=== PATIENT | female | born 1990 | race Caucasian/White ===

== ENCOUNTER 2019-12-07 14:36 | Outpatient (CLI) | payer OTHER ==
--- NOTE | 2019-12-07 16:10 | Non Stress Test Report ---
Non Stress Test Datetime Report Generated by CPN: 12/07/2019 16:09 DEMOGRAPHIC EGA NST: 40.1 INDICATION Indication for Study (NST) Other: POST DATES VITAL SIGNS Temperature - NST: 98.7 Pulse - NST: 86 RESP - NST: 18 NBPSYS NST: 103 NBPDIA NST: 68 MONITORING Monitor Explained: Monitor Explained; Test Explained; Patient Verbalized Understanding Time on Monitor: 12/07/2019 14:53 Time off Monitor: 12/07/2019 15:48 NST Duration: 55 NST INTERVENTIONS NST Interventions: PO Hydration; Reposition Patient Physician Notified NST: C MATHIAS, CNM BABY A: [id number] BABY A Movement : Present Contraction Frequency : RARE FHR Baseline : 135 Accelerations : 15X15 Decelerations : None Variability : Moderate 6-25bpm NST Review: Meets Criteria for Reactive NST NST Review and Verified By : KARISSA Chavis Results: Reactive NST REPORT Report Trigger: Send Report
== END 2019-12-07 15:51 | disposition home or self-care (01) ==
LOC: LC 14:36
PROVIDERS: ATTEND Obstetrics & Gynecology
PROC: 4A1HXCZ Monitoring of Products of Conception, Cardiac Rate, External Approach (ICD-10-PCS; principal; 2019-12-07)
DX: O48.0 Post-term pregnancy (principal); Z3A.40 40 weeks gestation of pregnancy
CPT/HCPCS: 59025

== ENCOUNTER 2019-12-11 15:55 | Outpatient (CLI) | payer OTHER ==
[2019-12-11 16:33] LABS: APPEARANCE,URINE SLIGHTLY-CLOUDY; BILIRUBIN,URINE NEGATIVE (NEGATIVE); COLOR,URINE YELLOW; GLUCOSE, URINE NEGATIVE (NEGATIVE); KETONES,URINE NEGATIVE (NEGATIVE); LEUKOCYTE ESTERASE,URINE NEGATIVE (NEGATIVE); NITRITE,URINE NEGATIVE (NEGATIVE); PROTEIN,URINE NEGATIVE (NEGATIVE); URINE SPECIFIC GRAVITY 1.017; UROBILINOGEN,URINE NEGATIVE mg/dL (<2.0)
[2019-12-11 16:58] LABS: BACTERIA (WET MOUNT) 4+ BACTERIA SEEN; EPITHELIALS (WET MOUNT) 3+ EPITHELIALS SEEN; RBCS (WET MOUNT) NO RBCS SEEN; T.VAGINALIS (WET MOUNT) NO TRICHOMONAS SEEN; WBCS (WET MOUNT) FEW WBCS SEEN; YEAST (WET MOUNT) NO YEAST SEEN
[2019-12-11 17:02] LABS: URINE AMPHETAMINES SCREEN NEGATIVE; URINE BARBITURATES SCREEN NEGATIVE; URINE BENZODIAZEPINES SCREEN NEGATIVE; URINE COCAINE SCREEN NEGATIVE; URINE MARIJUANA (THC) SCREEN NEGATIVE; URINE METHADONE SCREEN NEGATIVE; URINE PHENCYCLIDINE SCREEN NEGATIVE
[2019-12-11] MEDS ORDERED: HYDROXYZINE PAMOATE 50 MG CAPSULE PO ONE (17:03)
[2019-12-11] MEDS ORDERED: HYDROXYZINE PAMOATE 50 MG CAPSULE ONE (17:05)
== END 2019-12-11 18:05 | disposition home or self-care (01) ==
LOC: LC 15:55
PROVIDERS: ATTEND Obstetrics & Gynecology
PROC: 4A1HXCZ Monitoring of Products of Conception, Cardiac Rate, External Approach (ICD-10-PCS; principal; 2019-12-11)
DX: O48.0 Post-term pregnancy (principal); Z3A.40 40 weeks gestation of pregnancy
CPT/HCPCS: 59025; 80307; 81005; 84112; 87210

== ENCOUNTER 2019-12-12 10:35 | Inpatient (IN) | payer OTHER ==
--- NOTE | 2019-12-12 10:37 | Non Stress Test Report ---
Non Stress Test Datetime Report Generated by CPN: 12/12/2019 10:37 DEMOGRAPHIC EGA NST: 40.5 INDICATION Indication for Study (NST) Other: Labor Check IUP 40.5 MONITORING Monitor Explained: Monitor Explained; Test Explained; Patient Verbalized Understanding Time on Monitor: 12/11/2019 16:40 Time off Monitor: 12/11/2019 17:00 NST Duration: 20 NST INTERVENTIONS NST Interventions: PO Hydration Physician Notified NST: Dr. See BABY A: [id number] BABY A Movement : Present Contraction Frequency : Irritability FHR Baseline : 135 Accelerations : 15X15 Decelerations : None Variability : Moderate 6-25bpm NST Review: Meets Criteria for Reactive NST NST Review and Verified By : B Baidy RN NST Results: Reactive NST REPORT Report Trigger: Send Report
[2019-12-12 11:07] LABS: APPEARANCE,URINE SLIGHTLY-CLOUDY; BILIRUBIN,URINE NEGATIVE (NEGATIVE); COLOR,URINE YELLOW; GLUCOSE, URINE NEGATIVE (NEGATIVE); KETONES,URINE NEGATIVE (NEGATIVE); LEUKOCYTE ESTERASE,URINE TRACE (NEGATIVE); NITRITE,URINE NEGATIVE (NEGATIVE); PROTEIN,URINE NEGATIVE (NEGATIVE); URINE SPECIFIC GRAVITY 1.005; UROBILINOGEN,URINE NEGATIVE mg/dL (<2.0)
[2019-12-12 11:23] LABS: URINE AMPHETAMINES SCREEN NEGATIVE; URINE BARBITURATES SCREEN NEGATIVE; URINE BENZODIAZEPINES SCREEN NEGATIVE; URINE COCAINE SCREEN NEGATIVE; URINE MARIJUANA (THC) SCREEN NEGATIVE; URINE METHADONE SCREEN NEGATIVE; URINE PHENCYCLIDINE SCREEN NEGATIVE
[2019-12-12] MEDS ORDERED: OXYTOCIN/NORMAL SALINE 20 UNIT/1,000 ML RTUINJ ONE (11:44)
[2019-12-12] MEDS ORDERED: OXYTOCIN 10 UNIT/ML VIAL ONE (11:44)
[2019-12-12] MEDS ORDERED: MISOPROSTOL 0.2 MG TABLET ONE (11:44)
[2019-12-12] MEDS ORDERED: LIDOCAINE 1% INJ-PF (10 MG/ML) 30 ML SDV ONE (11:44)
--- NOTE | 2019-12-12 11:44 | Admission Physical ---
Datetime Report Generated by CPN: 12/12/2019 11:44 CURRENT ADMISSION Hx Assessment: The History has been Reviewed and is Current Chief Complaint: Uterine Contractions Indication for Induction: Not Applicable Admit Impression : Postterm, Intrauterine ; No Active Labor; Intact Membranes Admit Plan: Initiate Labor Protocol ALLERGIES Medication Allergies: Yes Medication Allergies: Penicillins (12/12/2019); morphine (12/12/2019) Latex: No Latex Allergies OBSTETRICAL HISTORY EDC: 12/06/2019 00:00 : 1 Para: 0 Term: 0 : 0 SAB: 0 IAB: 0 Livin Gestational Diabetes: No Rh Sensitization: No Incompetent Cervix: No MILES: No Infertility: No ART Treatment: No Uterine Anomaly: No IUGR: No Hx Previous C/S: No Macrosomia: No Hx Loss/Stillborn: No PIH: No Hx : No Placenta Previa/Abruption: No Depression/PP Depression: No PTL/PROM: No Post Hemorrhage: No Current Procedures: Ultrasound; NST Obstetrical History Comments: G1: current SEE RECORDS Alcohol: No Marijuana : No Cocaine: No Other Illicit Drugs: No Cigarettes: Former Smoker. [id number] MEDICAL HISTORY Diabetes: No Blood Transfusion: No Pulmonary Disease (Asthma, TB): No Breast Disease: No Hypertension: No Broke Beater Surgery: No Heart Disease: No Hosp/Surgery: Yes Autoimmune Disorder: No Anesthetic Complications: No Kidney Disease: No Abnormal Pap Smear: No Neuro/Epilepsy: No Psychiatric Disorders: No Other Medical Diseases: No Hepatitis/Liver Disease: No Significant Family History: No Varicosities/Phlebitis: No Trauma/Violence : No Thyroid Dysfunction: No Medical History Comments: tachycardia cleared by die reamer, tonsillectomy, appendectomy INFECTIOUS HISTORY Gonorrhea: No Genital Herpes: No Chlamydia: No Tuberculosis: No Syphilis: No Hepatitis: No HIV/AIDS Exposure: No Rash or Viral Illness: No HPV: No PHYSICAL EXAM General: Normal HEENT: Normal Neurologic: Normal Thyroid: Normal Heart: Normal Lungs: Normal Breast: Deferred Back: Normal Abdomen: Normal Genitourinary Exam: Normal Extremities: Normal DTRs: Normal Pelvic Type: Adequate Physical Exam Comments: G1, 40+6, GERD B Neg GBS Neg EFW 7 lbs FETUS A EGA: 40.6 Monitoring: External US Variability: Moderate 6-25bpm Accelerations: 15X15 Decelerations: Variable FHR Category: Category I Admit Comment: G1 admitted to LD in early labor, seen as a labor check last night and at office this AM. UC's worse now, making noise with uc's, on bouny ball and breathing with uc's + FM, variable decel x 1 with recovery, irreg uc's Plan: Admit, augmentation, POC discussed with pt and hsb, desires epidural when needed PLANS FOR LABOR AND DELIVERY Labor and Delivery: None Pain Management: Medications; Epidural Feeding Preference: Breast Benefit of Breast Feed Discussed: Yes Circumcision: N/A INFORMED CONSENT Assignment: Saroj Delgadillo MD Signature: with User ID: Bruce : with User ID: Bruce
[2019-12-12 13:07] LABS: ABSOLUTE EOSINOPHILS # (AUTO) 0.1 10^3/uL (0.0-0.6); ABSOLUTE LYMPHOCYTES (AUTO) 1.8 10^3/uL (0.5-4.7); ABSOLUTE MONOCYTES (AUTO) 0.9 10^3/uL (0.1-1.4); ABSOLUTE NEUT (AUTO) 10.5 10^3/uL (1.7-8.2); BASOPHILS % (AUTO) 0.2 % (0-2); EOSINOPHILS % (AUTO) 0.9 % (0-6); HEMATOCRIT 33.6 % (36.0-47.0); HEMOGLOBIN 11.8 g/dL (12.0-15.5); LYMPHOCYTES % (AUTO) 13.8 % (13-45); MEAN CORPUSCULAR HEMOGLOBIN 31.7 pg (27.0-33.4); MEAN CORPUSCULAR HGB CONC 35.1 g/dL (32.0-36.0); MEAN CORPUSCULAR VOLUME 90 fl (80-97); MONOCYTES % (AUTO) 6.6 % (3-13); PLATELET COUNT 217 10^3/uL (150-450); RED BLOOD COUNT 3.73 10^6/uL (3.72-5.28); RED CELL DISTRIBUTION WIDTH 13.9 % (11.5-14.0); SEGMENTED NEUTROPHILS % (AUTO) 78.5 % (42-78); TOTAL CELLS COUNTED % (AUTO) 100 %; WHITE BLOOD COUNT 13.3 10^3/uL (4.0-10.5)
[2019-12-12] MEDS ORDERED: EPHEDRINE SULFATE INJ 50 MG/1 ML AMPULE ONE (13:40)
[2019-12-12] MEDS ORDERED: FENTANYL/BUPIVACAINE/NS/PF 300 MCG/150 ML RTUINJ EPI ONE (13:41)
[2019-12-12] MEDS ORDERED: BUPIVACAINE HCL 0.25 % INJ/PF (2.5 MG/1 ML) 30 ML VIAL ONE (13:41)
[2019-12-12] MEDS ORDERED: RINGERS SOLUTION,LACTATED 1,000 ML IV PRN (18:07)
[2019-12-12] MEDS ORDERED: ACETAMINOPHEN WITH CODEINE #3 TABLET PO PRN ×2 (20:13)
[2019-12-12] MEDS ORDERED: GLYCERIN/WITCH HAZEL LEAF 1 EACH MED..WIPE TP PRN (20:13)
[2019-12-12] MEDS ORDERED: BENZOCAINE/MENTHOL AEROSOL SPRAY 56 ML TOP PRN (20:13)
[2019-12-12] MEDS ORDERED: MAGNESIUM HYDROXIDE SUSP 30 ML UDCUP PO PRN (20:13)
[2019-12-12] MEDS ORDERED: PSEUDOEPHEDRINE HCL 30 MG TABLET PO PRN (20:13)
[2019-12-12] MEDS ORDERED: PROMETHAZINE HCL 25 MG TABLET PO PRN (20:13)
[2019-12-12] MEDS ORDERED: ZOLPIDEM TARTRATE 5 MG TABLET PO PRN (20:13)
[2019-12-12] MEDS ORDERED: DIPH/PERTUSS(ACELL)/TETANUS VAC/PF 0.5 ML SYR (>=10YO) IM PRN (20:13)
[2019-12-12] MEDS ORDERED: OXYTOCIN/NORMAL SALINE 20 UNIT/1,000 ML RTUINJ IV PRN (20:13)
[2019-12-12] MEDS ORDERED: PROMETHAZINE HCL INJ 25 MG/1 ML VIAL IV PRN (20:13)
[2019-12-12] MEDS ORDERED: PROMETHAZINE HCL 25 MG SUPP.RECT PR PRN (20:13)
[2019-12-12] MEDS ORDERED: DIBUCAINE 1% OINTMENT 28 GM TP PRN (20:13)
[2019-12-12] MEDS ORDERED: MEASLES,MUMPS&RUBELLA VACC/PF 0.5 ML VIAL SUBCUT PRN (20:13)
[2019-12-12] MEDS ORDERED: ACETAMINOPHEN 650 MG SUPP.RECT PR PRN (20:13)
[2019-12-12] MEDS ORDERED: DIPHENHYDRAMINE HCL 25 MG CAPSULE PO PRN (20:13)
[2019-12-12] MEDS ORDERED: NA PHOS,M-B/NA PHOS,DI-BA (ADULT) 133 ML ENEMA PR PRN (20:13)
--- NOTE | 2019-12-12 21:51 | Delivery Summary ---
Del Sum A-C Datetime Report Generated by CPN: 12/12/2019 21:51 DELIVERY PERSONNEL DELIVERY PERSONNEL: [id number] Delivery Doctor:: Saroj Delgadillo MD Labor and Delivery Nurse:: Elvi Alicea RN Nursery Nurse:: Marylu Briscoe RN Dress Marker/FILM LIBRARIAN: Parkpolina Deleon, ST MATERNAL INFORMATION Delivery Anesthesia: Epidural Medications After Delivery: Pitocin Drip 20 Units/1000ml NSS Estimated Blood Loss (ml): 250 Delivery QBL: 150 Maternal Complications: None LABOR SUMMARY EDC: 12/06/2019 00:00 No. Babies in Womb: 1 Attempted: No Labor Anesthesia: Epidural LABOR INFORMATION Reason for Induction: Not Applicable Onset of Labor: 12/12/2019 06:00 Complete Dilatation: 12/12/2019 17:00 Oxytocin: N/A Group B Beta Strep: negative Antibiotics # of Doses: 0 Antibiotics Time of Last Dose: N/A Name of Antibiotic Given: N/A Steroids Given: None Reason Steroids Not Administered: Not Applicable MEMBRANES Membranes Rupture Method: Artificial Rupture of Membranes: 12/12/2019 13:17 Length of Rupture (hr): 6.68 Amniotic Fluid Color: Heavy Meconium Amniotic Fluid Amount: Scant Amniotic Fluid Odor: None STAGES OF LABOR Stage 1 hr: 11 Stage 1 min: 0 Stage 2 hr: 2 Stage 2 min: 58 Stage 3 hr: 0 Stage 3 min: 5 Total Time in Labor hr: 14 Total Time in Labor min: 3 VAGINAL DELIVERY Episiotomy: None Laceration #1: Vaginal Laceration Extension #1: N/A Laceration #2: None Laceration Extension #2: N/A Laceration #3: None Laceration Extension #3: N/A Laceration Repair: Yes Laceration Repair Note: left labial laceration repaired with 3 3-0 chromic (Annotations: Data stored by N on behalf of user) Sponge Count Correct: Yes Sharps Count Correct: Yes CSECTION DELIVERY Primary Indication: N/A Secondary Indication: N/A CSection Incidence: N/A Labor: N/A Elective: N/A BABY A INFORMATION Delivery Date/Time: 12/12/2019 19:58 Method of Delivery: Vaginal Nurse Controlled Delivery: No Born in Route : No : N/A Forceps: N/A Vacuum Extraction: N/A Shoulder Dystocia : No PRESENTATION/POSITION BABY A Presentation: Cephalic Cephalic Presentation: Vertex Vertex Position: Left Occipital Anterior Breech Presentation: N/A PLACENTA INFORMATION BABY A Placenta Delivery Time : 12/12/2019 20:03 Placenta Method of Delivery: Spontaneous Placenta Status: Delivered SCORES BABY A Heart Rate 1 min: >100 bpm Resp Effort 1 min: Slow, Irregular Reflex Irritability 1 min: Cough or Sneeze or Pulls Away Muscle Tone 1 min: Active Motion Color 1 min: Blue/Pale SCORE 1 MIN: 7 Heart Rate 5 min: >100 bpm Resp Effort 5 min: Good Cry Reflex Irritability 5 min: Cough or Sneeze or Pulls Away Muscle Tone 5 min: Active Motion Color 5 min: Body [place], Extremities Blue SCORE 5 MIN: 9 INFANT INFORMATION BABY A Gestational Age at Delivery: 40.6 Gestational Status: Full Term- 39- 40.6 Weeks Outcome : Liveborn Infant Condition : Stable Sex: Female IDENTIFICATION BABY A Verification Date/Time: 12/12/2019 20:11 ID Band Number: [id number] Mother's Name Verified: Yes Infant RN Verifying Infant: EImelda Alicea RN/ Werner Garcia RN WEIGHT/LENGTH BABY A Infant Birthweight (gm): 3210 Infant Weight (lb): 7 Infant Weight (oz): 1 Infant Length (in): 20.00 Length (cm): 50.80 CORD INFORMATION BABY A No. Cord Vessels: 3 Nuchal Cord : Around Neck x1, Loose Cord Blood Taken: Yes-For Eval (Mom's Blood Type - or O+) Suction: None ASSESSMENT BABY A Skin to Skin: Yes BABY B INFORMATION : N/A
[2019-12-12] MEDS: FAMOTIDINE 20 MG TABLET PO SCH (22:08)
[2019-12-13] MEDS: IBUPROFEN 800 MG TABLET PO SCH ×3 (02:07→17:36)
[2019-12-13 07:41] LABS: HEMATOCRIT 32.1 % (36.0-47.0); MEAN CORPUSCULAR HEMOGLOBIN 31.1 pg (27.0-33.4); MEAN CORPUSCULAR HGB CONC 34.1 g/dL (32.0-36.0); MEAN CORPUSCULAR VOLUME 91 fl (80-97); PLATELET COUNT 192 10^3/uL (150-450); RED BLOOD COUNT 3.52 10^6/uL (3.72-5.28); RED CELL DISTRIBUTION WIDTH 13.6 % (11.5-14.0); WHITE BLOOD COUNT 14.1 10^3/uL (4.0-10.5)
[2019-12-13] MEDS: SENNOSIDES/DOCUSATE 8.6-50 MG 1 EACH TABLET PO SCH (09:32)
[2019-12-13] MEDS: FERROUS SULFATE 325 MG TABLET PO SCH ×2 (09:32→17:36)
[2019-12-13] MEDS: PRENATAL VITAMIN W DHA CAPSULE PO SCH (09:32)
[2019-12-13] MEDS: FAMOTIDINE 20 MG TABLET PO SCH ×2 (09:34→22:30)
[2019-12-13] MEDS: DOCUSATE SODIUM 100 MG CAPSULE PO SCH ×2 (09:34→17:37)
--- NOTE | 2019-12-13 11:26 | PDOC PROGRESS REPORT ---
Subjective-OB Progress Note for:: 12/13/19 Subjective: Pt doing well, no concerns. She reports light bleeding, reg diet and voiding without difficulty. Physical Exam (OB) Vital Signs: Temp Pulse Resp BP Pulse Ox 97.7 F 81 18 113/65 99 12/13/19 08:00 12/13/19 08:00 12/13/19 08:00 12/13/19 08:00 12/13/19 08:00 Intake & Output 12/12/19 12/13/19 12/14/19 06:59 06:59 06:59 Intake Total 2000 1000 Output Total 800 Balance 1200 1000 Weight 107.2 kg - Lochia Lochia Amount: Scant < 10 ml Lochia Color: Rubra/Red - Abdomen Description: Soft Hernia Present: No Fundal Description: Firm, Midline Fundal Height: u/u - u/2 Objective-Diagnostic Laboratory: 12/13/19 07:25 12/12/19 12/12/19 12/13/19 12:50 12:50 07:25 WBC 13.3 H 14.1 H RBC 3.73 3.52 L Hgb 11.8 L 11.0 L Hct 33.6 L 32.1 L MCV 90 91 MCH 31.7 31.1 MCHC 35.1 34.1 RDW 13.9 13.6 Plt Count 217 192 Seg Neutrophils % 78.5 H Blood Type B NEGATIVE Antibody Screen NEGATIVE Assessment and Plan(PN) - Assessment and Plan (1) (spontaneous vaginal delivery) Is this a current diagnosis for this admission?: Yes (2) Normal course Is this a current diagnosis for this admission?: Yes (3) Meconium in amniotic fluid Is this a current diagnosis for this admission?: Yes - Time Spent with Patient Time with patient: Less than 15 minutes Medications reviewed and adjusted accordingly: Yes - Disposition Anticipated Discharge: Home Within: within 24 hours
[2019-12-14] MEDS: IBUPROFEN 800 MG TABLET PO SCH ×2 (01:04→09:28)
[2019-12-14 07:40] VITALS: BP 115/63
[2019-12-14] MEDS: PRENATAL VITAMIN W DHA CAPSULE PO SCH (09:28)
[2019-12-14] MEDS: DOCUSATE SODIUM 100 MG CAPSULE PO SCH (09:28)
[2019-12-14] MEDS: SENNOSIDES/DOCUSATE 8.6-50 MG 1 EACH TABLET PO SCH (09:28)
[2019-12-14] MEDS: FAMOTIDINE 20 MG TABLET PO SCH (09:31)
[2019-12-14] MEDS: FERROUS SULFATE 325 MG TABLET PO SCH (09:32)
--- NOTE | 2019-12-14 13:01 | PDOC DISCHARGE SUMMARY ---
Impression - Admit/DC Date/PCP Admission Date/Primary Care Provider: 12/12/19 11:37 BLANCO CADE MD Discharge Date: 12/14/19 - Discharge Diagnosis (1) (spontaneous vaginal delivery) Is this a current diagnosis for this admission?: Yes (2) Normal course Is this a current diagnosis for this admission?: Yes (3) Meconium in amniotic fluid Is this a current diagnosis for this admission?: Yes - Additional Information Resuscitation Status: Full Code Discharge Diet: As Tolerated, Regular Discharge Activity: Activity As Tolerated, Balance Activity w/Rest, No Lifting Over 10 Pounds, Pelvic Rest, No tub bath, Walk Frequently Referrals: BLANCO CADE MD [Primary Care Provider] - Prescriptions: Ibuprofen [Motrin 800 mg Tablet] 800 mg PO Q8HP PRN #20 tablet PRN Reason: For Pain Scale 1-3 Home Medications: Doxylamine Succinate/Vit B6 [Diclegis Dr 10-10 mg Tablet] 1 tab PO DAILY 12/07/19 Vits96/Iron Fum/Folic [ Tablet] 1 tab PO DAILY 12/07/19 Ibuprofen [Motrin 800 mg Tablet] 800 mg PO Q8HP PRN #20 tablet 12/14/19 Results Laboratory Results: WBC 14.1 10^3/uL (4.0-10.5) H 12/13/19 07:25 RBC 3.52 10^6/uL (3.72-5.28) L 12/13/19 07:25 Hgb 11.0 g/dL (12.0-15.5) L 12/13/19 07:25 Hct 32.1 % (36.0-47.0) L 12/13/19 07:25 MCV 91 fl (80-97) 12/13/19 07:25 MCH 31.1 pg (27.0-33.4) 12/13/19 07:25 MCHC 34.1 g/dL (32.0-36.0) 12/13/19 07:25 RDW 13.6 % (11.5-14.0) 12/13/19 07:25 Plt Count 192 10^3/uL (150-450) 12/13/19 07:25 Lymph % (Auto) 13.8 % (13-45) 12/12/19 12:50 [place] % (Auto) 6.6 % (3-13) 12/12/19 12:50 Eos % (Auto) 0.9 % (0-6) 12/12/19 12:50 Baso % (Auto) 0.2 % (0-2) 12/12/19 12:50 Absolute Neuts (auto) 10.5 10^3/uL (1.7-8.2) H 12/12/19 12:50 Absolute Lymphs (auto) 1.8 10^3/uL (0.5-4.7) 12/12/19 12:50 Absolute Monos (auto) 0.9 10^3/uL (0.1-1.4) 12/12/19 12:50 Absolute Eos (auto) 0.1 10^3/uL (0.0-0.6) 12/12/19 12:50 Absolute Basos (auto) 0.0 10^3/uL (0.0-0.2) 12/12/19 12:50 Seg Neutrophils % 78.5 % (42-78) H 12/12/19 12:50 Urine Color YELLOW 12/12/19 10:54 Urine Appearance SLIGHTLY-CLOUDY 12/12/19 10:54 Urine pH 7.0 (5.0-9.0) 12/12/19 10:54 Ur Specific [place] 1.005 12/12/19 10:54 Urine Protein NEGATIVE mg/dL (NEGATIVE) 12/12/19 10:54 Urine Glucose (UA) NEGATIVE mg/dL (NEGATIVE) 12/12/19 10:54 Urine Ketones NEGATIVE mg/dL (NEGATIVE) 12/12/19 10:54 Urine Blood MODERATE (NEGATIVE) H 12/12/19 10:54 Urine Nitrite NEGATIVE (NEGATIVE) 12/12/19 10:54 Urine Bilirubin NEGATIVE (NEGATIVE) 12/12/19 10:54 Urine Urobilinogen NEGATIVE mg/dL (<2.0) 12/12/19 10:54 Ur Leukocyte Esterase TRACE (NEGATIVE) H 12/12/19 10:54 Urine Ascorbic Acid NEGATIVE (NEGATIVE) 12/12/19 10:54 Membranes Rupture NEGATIVE (NEGATIVE) 12/12/19 10:54 Urine Opiates Screen NEGATIVE 12/12/19 10:54 Urine Methadone Screen NEGATIVE 12/12/19 10:54 Ur Barbiturates Screen NEGATIVE 12/12/19 10:54 Ur Phencyclidine Scrn NEGATIVE 12/12/19 10:54 Ur Amphetamines Screen NEGATIVE 12/12/19 10:54 U Benzodiazepines Scrn NEGATIVE 12/12/19 10:54 Urine Cocaine Screen NEGATIVE 12/12/19 10:54 U Marijuana (THC) Screen NEGATIVE 12/12/19 10:54 RPR NONREACTIVE (NONREACTIVE) 12/12/19 12:50 Blood Type B NEGATIVE 12/12/19 12:50 Antibody Screen NEGATIVE 12/12/19 12:50
== END 2019-12-14 13:50 | disposition home or self-care (01) | DRG 807 ==
LOC: LC 10:35 → LR 11:37 → 2S 22:06
PROVIDERS: ADMIT Obstetrics & Gynecology; ATTEND Obstetrics & Gynecology
PROC: 10E0XZZ Delivery of Products of Conception, External Approach (ICD-10-PCS; principal; 2019-12-12)
PROC: 0HQ9XZZ Repair Perineum Skin, External Approach (ICD-10-PCS; 2019-12-12)
DX: O48.0 Post-term pregnancy (principal); O70.0 First degree perineal laceration during delivery; O77.0 Labor and delivery complicated by meconium in amniotic fluid; O69.81X0 Labor and delivery complicated by cord around neck, without compression, not applicable or unspecified; Z3A.40 40 weeks gestation of pregnancy; Z87.891 Personal history of nicotine dependence; Z90.49 Acquired absence of other specified parts of digestive tract; O99.62 Diseases of the digestive system complicating childbirth; Z37.0 Single live birth; K21.9 Gastro-esophageal reflux disease without esophagitis; O76 Abnormality in fetal heart rate and rhythm complicating labor and delivery
CPT/HCPCS: 36415; 80307; 81005; 84112; 85025; 85027; 86592; 86850; 86900; 86901; 94760; J2590; J3010; J3490